=== PATIENT | female | born 1985 | race African-American/Black ===

== ENCOUNTER 2018-08-03 06:51 | Day surgery (SDC) | payer OTHER ==
[2018-08-03] MEDS: LACTATED RINGER'S 1,000 ML IV (08:11)
[2018-08-03] MEDS ORDERED: LIDOCAINE 2% (SDV) 5 ML INJ (10:15)
[2018-08-03] MEDS ORDERED: PROPOFOL 20 ML (10:15)
[2018-08-03] MEDS ORDERED: CEFAZOLIN 1 GM INJ (10:15)
[2018-08-03] MEDS ORDERED: MEPERIDINE 100 MG INJ (10:15)
[2018-08-03] MEDS ORDERED: ONDANSETRON 4 MG INJ (10:16)
[2018-08-03] MEDS ORDERED: METOCLOPRAMIDE 10 MG INJ (10:16)
[2018-08-03] MEDS: ROPIVACAINE 0.5 % 30 ML VIAL (10:58)
[2018-08-03] MEDS ORDERED: HYDROmorphONE 1 MG/5 ML IV SYRINGE IV ×3 (11:00)
[2018-08-03] MEDS ORDERED: OXYCODONE/ACETAMINOPHEN (5/325) TAB PO ×2 (11:00)
[2018-08-03] MEDS ORDERED: DIPHENHYDRAMINE 50 MG INJ IV (11:00)
[2018-08-03] MEDS ORDERED: METOCLOPRAMIDE 10 MG INJ IV (11:00)
[2018-08-03] MEDS ORDERED: MIDAZOLAM 1 MG/ML 2 ML INJ IV (11:00)
[2018-08-03] MEDS ORDERED: hydrALAzine 20 MG INJ IV (11:00)
[2018-08-03] MEDS ORDERED: EPHEDrine 25 MG/5 ML SYG IV (11:00)
[2018-08-03] MEDS ORDERED: FENTAnyl 50 MCG/ML VIAL IV (11:00)
[2018-08-03] MEDS ORDERED: LABETALOL HCL 20MG INJ IV (11:00)
[2018-08-03] MEDS: MEPERIDINE 25 MG INJ IV (12:21)
[2018-08-03] MEDS: ONDANSETRON 4 MG INJ IV (12:23)
[2018-08-03] MEDS: FENTAnyl 50 MCG/ML VIAL IV ×2 (12:24→12:33)
[2018-08-03] MEDS ORDERED: KETOROLAC 30 MG INJ IV (13:00)
[2018-08-03] MEDS ORDERED: morphine 2 MG INJ IV (13:00)
== END 2018-08-03 14:35 | disposition home or self-care (01) ==
LOC: SDS 06:51
DX: S83.251D Bucket-handle tear of lateral meniscus, current injury, right knee, subsequent encounter (principal); X58.XXXD Exposure to other specified factors, subsequent encounter; M94.261 Chondromalacia, right knee; J45.909 Unspecified asthma, uncomplicated
CPT/HCPCS: 29881; 82306; 84703